=== PATIENT | male | born 1995 | race Caucasian/White ===

== ENCOUNTER 2016-08-16 17:27 | Emergency (ER) | payer OTHER ==
[~2016-08-16 17:27] MED LIST: CARAFATE1 G PO; IBUPROFEN800 MG PO; MOTRIN600 MG PO; OMEPRAZOLE20 M2 PO; RANITIDINE HCL150 M1 PO; ZYRTEC10 M2 PO
== END 2016-08-16 17:35 | disposition home or self-care (01) ==
LOC: CFTX 17:27
DX: S05.02XA Injury of conjunctiva and corneal abrasion without foreign body, left eye, initial encounter (principal); Z88.1 Allergy status to other antibiotic agents; Z88.8 Allergy status to other drugs, medicaments and biological substances; X58.XXXA Exposure to other specified factors, initial encounter; Y92.89 Other specified places as the place of occurrence of the external cause
CPT/HCPCS: 99283